=== PATIENT | female | born 1985 | race African-American/Black ===

== ENCOUNTER 2018-07-11 19:53 | Emergency (ER) | payer OTHER | END 2018-07-11 20:39 | disposition home or self-care (01) | LOC: JERFT 19:53 ==

== ENCOUNTER 2018-07-14 15:12 | Emergency (ER) | payer OTHER ==
[2018-07-14 15:18] VITALS: TEMP 98; BMI 256.1
--- NOTE | 2018-07-14 15:20 | PDOC ---
Rapid Medical Evaluation Chief Complaint: Wound Time Seen by Provider: 07/14/18 15:13 Medical Evaluation: Allergies Allergy/AdvReac Type Severity Reaction Status Date / Time ibuprofen Allergy Verified 07/11/18 20:03 07/14/18 15:15 32 year old female here for redness and swelling to right mid back. currently on day 2 of antibiotics. denies fever / chills Pe: patient alert ox3. non fluctuant swelling to mid back warm to touch + tenderness to touch. A; cellulitis and abscess? P: cbc cmp serum Discharge Disposition - Diagnosis Cellulitis Qualifiers: Site of cellulitis: trunk Site of cellulitis of trunk: back Qualified Code(s): L03.312 - Cellulitis of back [any part except buttock] - Referrals - Patient Instructions - Post Discharge Activity
[2018-07-14 16:13] LABS: BASO % 0.5 % (0-2.0); EOS % 0.8 % (0-4.5); HEMATOCRIT 39.7 % (32.4-45.2); HEMOGLOBIN 12.8 GM/dL (10.7-15.3); LYMPH % 30.3 % (8-40); MCH 29.2 pg (25.7-33.7); MCHC 32.3 g/dl (32.0-36.0); MEAN CELL VOLUME 90.6 fl (80-96); MEAN PLT VOLUME 9.7 fl (7.5-11.1); MONO % 7.7 % (3.8-10.2); NEUT % 60.7 % (42.8-82.8); PLATELET COUNT 172 K/MM3 (134-434); RBC 4.39 M/mm3 (3.60-5.2); RDW 14.3 % (11.6-15.6); WHITE BLOOD COUNT 6.1 K/mm3 (4.0-10.0)
[2018-07-14 16:40] LABS: BILIRUBIN,TOTAL 0.3 mg/dL (0.2-1); CALCIUM 9.1 mg/dL (8.5-10.1); CREATININE 0.6 mg/dL (0.55-1.3); POTASSIUM 4.2 mmol/L (3.5-5.1); TOT PROT 7.7 g/dl (6.4-8.2)
--- NOTE | 2018-07-14 18:52 | PDOC ---
History of Present Illness <Stacey Velasquez - Last Filed: 07/15/18 10:41> <Liz Valverde - Last Filed: 07/15/18 15:15> - General Chief Complaint: Wound Stated Complaint: revisit Time Seen by Provider: 07/14/18 15:13 Past History - Past Medical History Asthma: Yes COPD: No - Suicide/Smoking/Psychosocial Hx Smoking History: Never smoked Have you smoked in the past 12 months: No Information on smoking cessation initiated: No Hx Alcohol Use: No Drug/Substance Use Hx: No <Stacey Velasquez - Last Filed: 07/15/18 10:41> <Liz Valverde - Last Filed: 07/15/18 15:15> - Past Medical History Allergies/Adverse Reactions: Allergies Allergy/AdvReac Type Severity Reaction Status Date / Time ibuprofen Allergy Verified 07/11/18 20:03 Home Medications: Ambulatory Orders Albuterol Sulfate Inhaler - [Ventolin Hfa Inhaler -] 1 - 2 inh PO QID 07/11/18 Cephalexin Monohydrate [Keflex -] 500 mg PO Q6H #28 capsule 07/11/18 Sulfamethoxazole/Trimethoprim [Bactrim Ds -] 1 tab PO BID #14 tablet 07/11/18 *Physical Exam - Vital Signs Last Vital Signs Temp Pulse Resp BP Pulse Ox 98 F 79 18 102/50 L 99 07/14/18 15:14 07/14/18 15:14 07/14/18 15:14 07/14/18 15:14 07/14/18 15:14 <Stacey Velasquez - Last Filed: 07/15/18 10:41> - Vital Signs Last Vital Signs Temp Pulse Resp BP Pulse Ox 98 F 80 16 118/83 99 07/14/18 15:14 07/14/18 19:05 07/14/18 19:05 07/14/18 19:05 07/14/18 15:14 <Liz Valverde - Last Filed: 07/15/18 15:15> Procedures - Incision and Drainage I&D Site: Right: Other (midback) Betadine cleansed: Yes Anesthesia: 1% Lidocaine Volume(ml): 5 Blade Size: 11 Attempts: 1 Iodinated Packin in (2x2 placed. No packing in the ER) Dressing: Yes <Stacey Velasquez - Last Filed: 07/15/18 10:41> ED Treatment Course - LABORATORY CBC & Chemistry Diagram: 07/14/18 15:50 07/14/18 15:50 - ADDITIONAL ORDERS Additional order review: Laboratory Results 07/14/18 07/14/18 15:50 15:50 Sodium 136 Potassium 4.2 Chloride 105 Carbon Dioxide 23 Anion Gap 8 BUN 20 H Creatinine 0.6 Est GFR (CKD-EPI)AfAm 140.77 Est GFR (CKD-EPI)NonAf 121.46 Random Glucose 71 L Calcium 9.1 Total Bilirubin 0.3 AST 17 ALT 23 Alkaline Phosphatase 51 Total Protein 7.7 Albumin 4.0 Serum , Qual Negative 07/14/18 15:50 RBC 4.39 MCV 90.6 MCHC 32.3 RDW 14.3 MPV 9.7 Neutrophils % 60.7 Lymphocytes % 30.3 Monocytes % 7.7 Eosinophils % 0.8 Basophils % 0.5 <Stacey Velasquez - Last Filed: 07/15/18 10:41> - LABORATORY CBC & Chemistry Diagram: 07/14/18 15:50 07/14/18 15:50 - ADDITIONAL ORDERS Additional order review: 07/14/18 18:30 Gram Stain - Final Back 07/14/18 15:50 RBC 4.39 MCV 90.6 MCHC 32.3 RDW 14.3 MPV 9.7 Neutrophils % 60.7 Lymphocytes % 30.3 Monocytes % 7.7 Eosinophils % 0.8 Basophils % 0.5 <Liz Valverde - Last Filed: 07/15/18 15:15> Medical Decision Making - Medical Decision Making 07/14/18 18:45 The patient is a 32 y/o F with PMH of asthma, scoliosis, who presents to the ER for a re-evaluate of cellulitis to her back. She was seen in out ER two days ago and diagnosed with cellulitis. She was given bactrim and keflex and she reports taking them for the last two days. She states the area on her mid back has gotten larger and feels tense. Denies fevers, chills, numbness/tingling/ weakness, redness to the area. A/P: Abscess On exam a fluctuant area with surrounding induration is noted to the R medial back. 5x5 oblong structure POCUS performed with Dr. Valverde obtained at bedside. A 0.5cm hypoechoic density noted just to the right of the spine. Cobblestoning noted as well. Area was marked. Incision and drainage performed. See procedure section. Wound culture obtained DC home with instructions to complete abx as previously prescribed and f/u in two days for wound check <Stacey Velasquez - Last Filed: 07/15/18 10:41> - Medical Decision Making The patient was seen and evaluated in conjunction with midlevel provider under my direct supervision, ancillary studies were reviewed. I agree with the plan as outlined PA Ron HPI, workup/dispo as outlined. VS reviewed, wnl. in conjunction and bedside eval, lower back with cellulitic findings. pocus soft tissue revealed small area of hypoechoic collection, c/w small abscess I&D, wound cultures, c/w abx already prescribed keflex/bactrim wound care instructions,, return precautions. 07/15/18 15:13 <Liz Valverde - Last Filed: 07/15/18 15:15> *DC/Admit/Observation/Transfer - Discharge Dispostion Decision to Admit order: No <Stacey Velasquez - Last Filed: 07/15/18 10:41> <Liz Valverde - Last Filed: 07/15/18 15:15> Diagnosis at time of Disposition: Abscess Cellulitis Qualifiers: Site of cellulitis: trunk Site of cellulitis of trunk: back Qualified Code(s): L03.312 - Cellulitis of back [any part except buttock] - Discharge Dispostion Disposition: HOME Condition at time of disposition: Stable - Referrals Referrals: Raoul Samuels [Primary Care Provider] - - Patient Instructions Printed Discharge Instructions: DI for Incision and Drainage of a Skin Abscess Additional Instructions: You have cellulitis and an abscess. This is a skin infection. Please continue to take the Bactrim and Keflex twice a day for one week. Please take all the antibiotics even if you feel better. Please avoid shaving the skin around the area of redness. You may take Tylenol as needed for pain, follow the manufacture's instructions Please follow up on in the ER for a wound check Return to the emergency department if you have worsening redness, fevers, increasing pain, or have any changes in your symptoms. - Post Discharge Activity Forms/Work/School Notes: Back to Work
[2018-07-14 19:05] VITALS: BP 118/83; PULSE 80
== END 2018-07-14 19:10 | disposition home or self-care (01) ==
LOC: JER 15:12
PROC: 0J970ZZ Drainage of Back Subcutaneous Tissue and Fascia, Open Approach (ICD-10-PCS; principal; 2018-07-14)
DX: L02.212 Cutaneous abscess of back [any part, except buttock and flank] (principal)
CPT/HCPCS: 10060; 36415; 80053; 84703; 85025; 87040; 87070; 87205; 99282-25

== ENCOUNTER 2018-07-16 10:14 | Emergency (ER) | payer OTHER | END 2018-07-16 12:33 | disposition home or self-care (01) | LOC: JERFT 10:14 ==

== ENCOUNTER 2019-09-28 19:15 | Emergency (ER) | payer OTHER ==
--- NOTE | 2019-09-28 19:23 | PDOC ---
Rapid Medical Evaluation Time Seen by Provider: 09/28/19 19:22 Medical Evaluation: Allergies Allergy/AdvReac Type Severity Reaction Status Date / Time ibuprofen Allergy Verified 05/10/19 06:50 09/28/19 19:22 I have performed a brief in-person evaluation of this patient. CC: neck and upper back pain; PMHx: scoliosis with internal fixation '98 PE: No focal findings Orders: tylenol Patient will proceed to ED for further evaluation. Discharge Disposition - Diagnosis Back pain - Referrals - Patient Instructions - Post Discharge Activity
[2019-09-28] MEDS ORDERED: ACETAMINOPHEN 500 MG TABLET (FP) PO ONE ×2 (19:24→19:52)
[2019-09-28 19:25] VITALS: BP 134/56; PULSE 102; TEMP 98.3; BMI 25.7
[2019-09-28] MEDS ORDERED: LIDOCAINE 5% TOPICAL PATCH TP ONE (19:52)
[2019-09-28] MEDS ORDERED: LIDOCAINE 5% TOPICAL PATCH ONE (19:54)
[2019-09-28] MEDS ORDERED: ACETAMINOPHEN 500 MG TABLET (FP) ONE (19:54)
--- NOTE | 2019-09-28 20:00 | PDOC ---
History of Present Illness - General Chief Complaint: Chronic pain Stated Complaint: NECK/BACK PAIN Time Seen by Provider: 09/28/19 19:22 History Source: Patient - History of Present Illness Timing/Duration: other (2 weeks) Past History - Medical History Allergies/Adverse Reactions: Allergies Allergy/AdvReac Type Severity Reaction Status Date / Time ibuprofen Allergy Verified 09/28/19 19:25 Home Medications: Ambulatory Orders Ergocalciferol (Vitamin D2) [Vitamin D2] 50,000 unit PO WEEKLY 05/09/19 Acetaminophen [Tylenol -] 1,000 mg PO Q6H #50 tablet 09/28/19 Cyclobenzaprine HCl [Flexeril 10 mg] 10 mg PO HS #9 tablet 09/28/19 Lidocaine 5% Patch [Lidoderm Patch -] 1 patch TP DAILY #7 patch 09/28/19 Asthma: Yes COPD: No - Reproductive History Is Patient Now?: No - Psycho-Social/Smoking History Smoking History: Never smoked Have you smoked in the past 12 months: No - Substance Abuse Hx (Audit-C & DAST Scrn) How often the patient has a drink containing alcohol: Monthly or less Number of drinks the patient has on a typical day: 1 or 2 How often the patient has six or more drinks on one occasion: Never Score: In Men: 4 or > Positive; In Women: 3 or > Positive: 1 Screen Result (Pos requires Nsg. Audit-10AR): Negative Review of Systems - Review of Systems Constitutional: No: Chills, Fever Musculoskeletal: Yes: Neck Pain Neurological: No: Headache, Numbness, Tingling, Weakness *Physical Exam - Vital Signs Last Vital Signs Temp Pulse Resp BP Pulse Ox 98.3 F 102 H 18 134/56 L 97 09/28/19 19:22 09/28/19 19:22 09/28/19 19:22 09/28/19 19:22 09/28/19 19:22 - Physical Exam General Appearance: Yes: Appropriately Dressed. No: Apparent Distress HEENT: positive: Normal Voice Neck: positive: Tender (to midline and over L shoulderblade, pain to site w/ ROM), Supple Respiratory/Chest: negative: Respiratory Distress Integumentary: positive: Dry, Warm Neurologic: positive: Fully Oriented, Alert, Normal Mood/Affect, Motor Strength 5/5. negative: Sensory Deficit Medical Decision Making - Medical Decision Making 09/28/19 19:57 34 yo F, h/o scoliosis, s/p "open back surgery" remotely, ?chronic neck pain, here w/ worsening neck pain x 2 weeks, worse than it's been in the past per pt. Not improving w/ aleve. No sensory changes, UE weakness, ARANGO, dizziness, n/v. No recent trauma see exam Acute on chronic neck pain No red flags at this time Dc w/ pain control To f/u with senior quality assurance specialist Discharge - Discharge Information Problems reviewed: Yes Clinical Impression/Diagnosis: Neck pain Condition: Good Disposition: HOME - Additional Discharge Information Prescriptions: Cyclobenzaprine HCl [Flexeril 10 mg] 10 mg PO HS #9 tablet Lidocaine 5% Patch [Lidoderm Patch -] 1 patch TP DAILY #7 patch Acetaminophen [Tylenol -] 1,000 mg PO Q6H #50 tablet - Follow up/Referral Referrals: Raoul Samuels [Primary Care Provider] - - Patient Discharge Instructions Patient Printed Discharge Instructions: DI for Neck Pain Additional Instructions: Take medications as directed Continue to follow up with your senior quality assurance specialist - Post Discharge Activity
[2019-09-28] MEDS ORDERED: LIDOCAINE PATCH REMOVAL MC SCH (22:00)
== END 2019-09-28 20:05 | disposition home or self-care (01) ==
LOC: JERFT 19:15
DX: M54.2 Cervicalgia (principal)
CPT/HCPCS: 99283-25

== ENCOUNTER 2020-07-04 00:26 | Emergency (ER) | payer OTHER ==
[2020-07-04 00:50] VITALS: BP 110/71; PULSE 87; TEMP 98.1; BMI 21.7
== END 2020-07-04 01:38 | disposition home or self-care (01) ==
LOC: JER 00:26
DX: R05 Cough (principal); Z11.52 Encounter for screening for COVID-19
CPT/HCPCS: 99283-25; C9803; U0003; U0005

== ENCOUNTER 2020-12-21 17:19 | Observation (INO) | payer OTHER ==
[2020-12-21 17:30] VITALS: BMI 26.9
[2020-12-21 18:58] LABS: BASO % 1.5 % (0-2.0); EOS % 1.1 % (0-4.5); HEMATOCRIT 35.5 % (32.4-45.2); HEMOGLOBIN 12.3 GM/dL (10.7-15.3); LYMPH % 35.9 % (8-40); MCH 30.2 pg (25.7-33.7); MCHC 34.7 g/dl (32.0-36.0); MEAN CELL VOLUME 86.8 fl (80-96); MONO % 7.6 % (3.8-10.2); NEUT % 53.9 % (42.8-82.8); PLATELET COUNT 201 10^3/uL (134-434); RBC 4.09 M/mm3 (3.60-5.2); RDW 13.8 % (11.6-15.6); WHITE BLOOD COUNT 5.5 K/mm3 (4.0-10.0)
[2020-12-21 19:10] LABS: INR 1.09 (0.83-1.09); PROTHROMBIN TIME (PATIENT) 12.2 SEC (9.7-13.0)
[2020-12-21 19:13] LABS: ACTIVATED PTT 26.4 SECONDS (25.2-36.5)
[2020-12-21 19:14] LABS: CHLORIDE 106 mmol/L (98-107); SODIUM 139 mmol/L (136-145)
[2020-12-21 19:15] LABS: CALCIUM 9.3 mg/dL (8.5-10.1)
[2020-12-21 19:16] LABS: ALBUMIN 3.8 g/dl (3.4-5.0); ANION GAP 5 MMOL/L (8-16); BLOOD UREA NITROGEN 19.1 mg/dL (7-18); CO2 28 mmol/L (21-32); GLUCOSE,RANDOM 82 mg/dL (74-106)
[2020-12-21 19:18] LABS: CREATININE 0.6 mg/dL (0.55-1.3); SGOT/AST 17 U/L (15-37); SGPT/ALT 19 U/L (13-61)
[2020-12-21 19:21] LABS: ALK PHOS 42 U/L (45-117); BILIRUBIN,TOTAL 0.3 mg/dL (0.2-1); TOT PROT 7.5 g/dl (6.4-8.2)
[2020-12-22 07:24] LABS: BASO % 1.1 % (0-2.0); EOS % 2.1 % (0-4.5); HEMATOCRIT 34.7 % (32.4-45.2); LYMPH % 35.6 % (8-40); MCH 30.1 pg (25.7-33.7); MCHC 34.5 g/dl (32.0-36.0); MEAN CELL VOLUME 87.3 fl (80-96); MEAN PLT VOLUME 9.2 fl (7.5-11.1); MONO % 7.3 % (3.8-10.2); NEUT % 53.9 % (42.8-82.8); PLATELET COUNT 175 10^3/uL (134-434); RBC 3.97 M/mm3 (3.60-5.2); RDW 14.2 % (11.6-15.6)
[2020-12-22 07:28] LABS: INR 1.09 (0.83-1.09); PROTHROMBIN TIME (PATIENT) 12.2 SEC (9.7-13.0)
[2020-12-22 08:06] LABS: ALBUMIN 3.4 g/dl (3.4-5.0); BLOOD UREA NITROGEN 19.6 mg/dL (7-18); CALCIUM 8.9 mg/dL (8.5-10.1); MAGNESIUM 2.1 mg/dL (1.8-2.4)
[2020-12-22 08:10] LABS: BILIRUBIN,TOTAL 0.4 mg/dL (0.2-1); CREATININE 0.6 mg/dL (0.55-1.3)
[2020-12-22] MEDS ORDERED: metoPROLOL SUCCINATE 25 MG TAB.SR.24H (FP) PO SCH (10:00)
[2020-12-22] MEDS ORDERED: ENOXAPARIN NA (PORCINE) 40 MG/0.4 ML DISP.SYRIN SQ SCH (10:00)
[2020-12-22 15:08] VITALS: BP 108/71; PULSE 78; TEMP 98.2
== END 2020-12-22 15:56 | disposition home or self-care (01) ==
LOC: JER 17:19 → JERBED 20:45 → J4W 12-22 04:05
PROVIDERS: ADMIT Internal Medicine; ATTEND Internal Medicine
PROC: 3E023GC Introduction of Other Therapeutic Substance into Muscle, Percutaneous Approach (ICD-10-PCS; principal; 2020-12-21)
DX: R07.9 Chest pain, unspecified (principal); J45.909 Unspecified asthma, uncomplicated; M41.9 Scoliosis, unspecified; Z86.16 Personal history of COVID-19; Z86.74 Personal history of sudden cardiac arrest; Z29.9 Encounter for prophylactic measures, unspecified; Z88.8 Allergy status to other drugs, medicaments and biological substances
CPT/HCPCS: 36415; 71046-TC-FY; 80053; 80061; 82550; 83036; 83735; 84100; 84443; 84484; 84703; 85025; 85027; 85379; 85610; 85730; 86850; 86900; 86901; 93005; 93010; 96372; 99285-25; C9803; G0378; U0003; U0005

== ENCOUNTER 2021-01-27 16:31 | Emergency (ER) | payer OTHER ==
[2021-01-27 17:05] VITALS: BP 112/74; TEMP 98; BMI 26.4
[2021-01-27] MEDS ORDERED: SODIUM CHLORIDE 0.9% 500 ML INFUS.BAG IV ONE (17:19)
[2021-01-27 17:55] LABS: BASO % 0.8 % (0-2.0); EOS % 0.7 % (0-4.5); HEMATOCRIT 39.3 % (32.4-45.2); HEMOGLOBIN 13.1 GM/dL (10.7-15.3); LYMPH % 20.4 % (8-40); MCH 29.2 pg (25.7-33.7); MCHC 33.2 g/dl (32.0-36.0); MEAN PLT VOLUME 9.2 fl (7.5-11.1); MONO % 13.8 % (3.8-10.2); NEUT % 64.3 % (42.8-82.8); PLATELET COUNT 170 10^3/uL (134-434); RBC 4.47 M/mm3 (3.60-5.2); RDW 13.9 % (11.6-15.6); WHITE BLOOD COUNT 5.3 K/mm3 (4.0-10.0)
[2021-01-27 18:10] LABS: ALBUMIN 3.5 g/dl (3.4-5.0)
[2021-01-27 18:13] LABS: CREATININE 0.6 mg/dL (0.55-1.3)
[2021-01-27 18:15] LABS: BILIRUBIN,TOTAL 0.6 mg/dL (0.2-1); TOT PROT 7.9 g/dl (6.4-8.2)
[2021-01-27 18:59] VITALS: PULSE 91
== END 2021-01-27 18:59 | disposition home or self-care (01) ==
LOC: JERFT 16:31
DX: R19.7 Diarrhea, unspecified (principal)
CPT/HCPCS: 36415; 80053; 83690; 85025; 87804; 87807; 99284-25; C9803; U0003; U0005

== ENCOUNTER 2021-08-25 23:42 | Emergency (ER) | payer OTHER ==
[2021-08-26 00:07] VITALS: BP 135/74; PULSE 84; TEMP 97.5; BMI 26.6
== END 2021-08-26 00:45 | disposition left against medical advice (07) ==
LOC: JER 08-26 00:07
DX: R21 Rash and other nonspecific skin eruption (principal)
CPT/HCPCS: 99281-25

== ENCOUNTER 2022-02-13 19:52 | Emergency (ER) | payer OTHER ==
[2022-02-13 20:03] VITALS: BP 122/78; PULSE 81; RESP 17; TEMP 98.9; BMI 27.4
[2022-02-13] MEDS ORDERED: ACETAMINOPHEN 325 MG TABLET (FP) PO ONE (21:46)
[2022-02-13] MEDS ORDERED: ACETAMINOPHEN 325 MG TABLET (FP) ONE (22:55)
== END 2022-02-14 03:04 | disposition home or self-care (01) ==
LOC: JER 19:52
DX: M54.50 Low back pain, unspecified (principal); W00.0XXA Fall on same level due to ice and snow, initial encounter
CPT/HCPCS: 0241U-QW; 72131-TC; 72192-TC; 84703; 99284-25

== ENCOUNTER 2024-02-18 09:41 | Emergency (ER) | payer OTHER ==
[2024-02-18 10:05] VITALS: BP 117/65; PULSE 100; RESP 20
[2024-02-18] MEDS ORDERED: ACETAMINOPHEN 500 MG TABLET (FP) ONE (10:33)
[2024-02-18] MEDS: ACETAMINOPHEN 500 MG TABLET (FP) PO ONE (10:44)
[2024-02-18 11:25] VITALS: TEMP 100
== END 2024-02-18 11:39 | disposition home or self-care (01) ==
LOC: JERFT 09:41
DX: J10.1 Influenza due to other identified influenza virus with other respiratory manifestations (principal); R50.9 Fever, unspecified; R09.81 Nasal congestion; R05.9 Cough, unspecified; Z20.822 Contact with and (suspected) exposure to COVID-19
CPT/HCPCS: 0241U-QW; 71046-TC-FY; 99284-25